=== PATIENT | male | born 1970 | race Caucasian/White ===

== ENCOUNTER 2016-12-27 15:11 | Emergency (ER) | payer SELFPAY ==
--- NOTE | 2017-01-11 14:37 | ER ---
ADMIT: 12/27/2016 RM/LOC: ER [facility] MR#: [id number] [id number] [place], [place] [id number] JEN VALDES [address] [place] [address] Emergency Room Report SEX: M AGE: 46 : 1970 DATE: 12/27/2016 ADDENDUM: CHIEF COMPLAINT: Abdominal pain. COURSE IN THE EMERGENCY ROOM: CBC, urinalysis, chemistries, and ultrasound was done. Ultrasound showed fatty liver, nondistended gallbladder with no definite stones or sludge. He was tender in this area, but it was hard to fully assess due to the contraction of the gallbladder. Chemistries were normal except for ALT elevated at 124. Lipase was normal. Urinalysis was normal. CBC is normal except for white count of 10.3. DISPOSITION: I told him to push fluids. Try to follow a non-fat diet and follow up with primary care physician concerning elevated LFT and possibly repeat the gallbladder ultrasound. NERY Jones / Zhao Dodge MD / owen JOB #: [id number] CC: Zhao Dodge MD, Attending Physician Enrique Barone MD, Family Physician
== END 2016-12-27 16:45 | disposition home or self-care (01) ==
LOC: ER 15:11
DX: R10.11 Right upper quadrant pain (principal); R74.0 Nonspecific elevation of levels of transaminase and lactic acid dehydrogenase [LDH]; E11.9 Type 2 diabetes mellitus without complications; Z79.899 Other long term (current) drug therapy